=== PATIENT | male | born 1965 | race Native Hawaiian/Other Pacific Islander ===

== ENCOUNTER 2020-08-08 09:27 | Outpatient (CLI) | payer OTHER | END 2020-08-09 03:35 | disposition home or self-care (01) | LOC: RAD 09:27 | DX: S59.902A Unspecified injury of left elbow, initial encounter (principal) ==

== ENCOUNTER 2020-08-13 10:53 | Outpatient (CLI) | payer OTHER | END 2020-08-13 22:57 | disposition home or self-care (01) | LOC: US 10:53 | DX: I82.609 Acute embolism and thrombosis of unspecified veins of unspecified upper extremity (principal) ==